=== PATIENT | male | born 1950 ===

== ENCOUNTER 2018-11-29 12:57 | Inpatient (IN) | payer OTHER ==
[~2018-11-29] VITALS: Ht 182.9 cm; Wt 79.0 kg
[~2018-11-29 12:57] MED LIST: Dazidox10 MG PO; LORA1 PO; PANT20 PO; PREG100 PO
[2018-11-29 13:22] LABS: BASOPHILS ABSOLUTE AUTO 0.08 K/mm3 (0.00-0.23); BASOPHILS PERCENT AUTO 1 % (0-2); EOSINOPHILS ABSOLUTE AUTO 0.12 K/mm3 (0.00-0.68); EOSINOPHILS PERCENT AUTO 1 % (0-6); Hematocrit 35.8 % (37.0-53.0); Hemoglobin 11.8 g/dL (13.5-17.5); IMMATURE GRAN ABSOLUTE AUTO 0.03 K/mm3 (0.00-0.10); IMMATURE GRAN PERCENT AUTO 0 % (0-1); LYMPHOCYTES ABSOLUTE AUTO 2.08 K/mm3 (0.84-5.20); LYMPHOCYTES PERCENT AUTO 24 % (21-46); MONOCYTES ABSOLUTE AUTO 0.49 K/mm3 (0.16-1.47); MONOCYTES PERCENT AUTO 6 % (4-13); Mean Corpuscular HGB 30.8 pg (26.0-34.0); Mean Corpuscular Volume 94 fL (80-100); Mean Platelet Volume 10.5 fL (9.1-12.4); NEUTROPHILS ABSOLUTE AUTO 5.74 K/mm3 (1.96-9.15); NEUTROPHILS PERCENT AUTO 67 % (41-73); Platelet Count 234 K/mm3 (150-400); RDW Coefficient Variation 14.7 % (11.7-14.2); RDW Standard Deviation 50.9 fL (35.1-46.3); Red Blood Cell Count 3.83 M/mm3 (4.30-5.90); White Blood Cell Count 8.54 K/mm3 (4.00-11.30)
[2018-11-29 13:42] LABS: Alanine Aminotransfer (ALT/SGP 24 U/L (12-78); Albumin, Blood 3.8 g/dL (3.4-5.0); Albumin/Globulin Ratio 1.1 (0.8-1.8); Alk Phos 98 U/L (50-136); Anion Gap 7 mmol/L (6-16); Aspartate Aminotrans (AST/SGOT 25 U/L (12-37); Bilirubin, Total 0.7 mg/dL (0.1-1.0); Blood Urea Nitrogen 25 mg/dL (8-24); Bun/Creatinine Ratio 25.9 (12.0-20.0); CO2, Blood 27 mmol/L (21-32); Calcium, Blood 9.2 mg/dL (8.5-10.1); Chloride, Blood 105 mmol/L (98-108); Creatinine, Blood 0.97 mg/dL (0.60-1.20); Globulin, Blood 3.6 g/dL (2.2-4.0); Glomerular Filtration Rate >60 (60-); Glucose, Blood 166 mg/dL (70-99); Potassium, Blood 4.1 mmol/L (3.5-5.5); Sodium, Blood 139 mmol/L (136-145); Total Protein, Blood 7.4 g/dL (6.4-8.2)
[2018-11-29 14:49] LABS: International Normalized Ratio 0.98; Prothrombin Time Results 10.4 Sec (9.7-11.5)
[2018-11-29 15:00] LABS: PCO2 Arterial 57.4 mmHg (35-45); PO2 Arterial 42.7 mmHg (80-100); pH Blood Arterial 7.31 (7.35-7.45)
[2018-11-29] MEDS ORDERED: Oxycontin60 MG PO (15:21)
[2018-11-29 18:53] LABS: PCO2 Arterial 46.9 mmHg (35-45); PO2 Arterial 123 mmHg (80-100); pH Blood Arterial 7.38 (7.35-7.45)
--- NOTE | 2018-11-29 20:10 | NUR ---
ADMIT NOTE RECEIVED REPORT FROM JUSTYN FIERRO IN ED. PT TO ROOM VIA GURNEY, TRANSFERED WITH 5 PERSON ASSIST AND SLIDER SHEET AT 1750. PT RESPONDS TO VERBAL STIMULI, PT ANSWERS QUESTIONS, ORIETED TO SELF AND FAMILY, FOLLOWS DIRECTIONS. PER RERPORT FROM ED RN AND SIGNIFICANT OTHER, PT WAS FOUND DOWN AT HOME, BETWEEN COUCH AND WALL, EMS WAS CALLED. PT CRITICAL CARE BIPAP, SETTINGS ON ADMISSION 04/26 AT 30% FIO2, BACK RATE OF 14. PT DENIES PAIN AND NAUSEA; SHAKES HEAD "NO" WHEN ASKED. PRESSURE ULCES TO LEFT GLUTEAL CLEF AND BLISTER NOTED ON LEFT SHIFT, PICTURES TAKEN AND IN CHART. SO STATES PATIENT HAS BEEN PARALYZED FROM THE WAIST DOWN FOR APPROX 4 MONTHS AND USES A WHEELCHAIR AT BASELINE. ELEVATED BP NOTED ON ADMISSION AND PT BECOMING LESS RESPONSE SINCE ADMISSION, AND PT ONLY TRIGGERING SPONTANEOUS RESP 21% OF TIME, NOTIFIED DR OBREGON, NEW ORDERS FOR STAT ABG, STOP FLUIDS AND NARCAN 0.4 MG IV AFTER ABG DRAWN. ABG COMLETED, STANISLAW CRESPO RN CALLED RESULTS INTO DR OBREGON. NARCAN ADMINISTERED WITH POSITIVE RESULTS, PT SPONTASEOUSLY ALERT AND ASKING FOR URINAL. ATTENDS WET AND PT CLEANED AND ATTENDS CHANGED. BP TRENDING DOWN ON REASSESSMENT. OTHER VSS. NO OTHER ACUTE CHANGES NOTED. REPORT GIVEN TO ONCOMING JUSTYN.
--- NOTE | 2018-11-29 22:23 | NUR ---
ASSUMED CARE OF PATIENT AT APPROXIMATELY 1910 FROM SANTOS Mullen RN. PATIENT WAKES TO VERBAL STIMULUS AND THROUGHOUT SHIFT HAS BECOME MORE ALERT; OPENS EYES SPONTANEOUSLY. PATIENT OCCASIONALLY MUMBLES; REPORTS THIS IS NORMAL; PATIENT'S REPORTS THAT PATIENT NORMALLY STATES HE NEEDS TO PEE FIRST THING WHEN HE WAKES UP. PATIENT AND PATIENT'S REPORTS THAT PATIENT HAS N/T FROM WAIST DOWN. PATIENT DENIES PAIN, DIZZINESS AND NAUSEA. NSR W/ 1DEGREE ON TELE; OXYGEN SATURATION ABOVE 90% ON BIPAP RATE 16; 25% FIO2. PATIENT'S HAS BEEN AT BEDSIDE. PATIENT USES URINAL AT TIMES; INCONTINENT OF URINE AND STOOL; ATTENDS IN PLACE; TURNED Q2 HOURS AND ATTENDS CHECKED; PRESSURE ULCER. PIV S/L. PATIENT CURRENTLY RESTING IN BED; CALL LIGHT IN REACH; BED ALARM ON; BED IN LOWEST POSISTION; WILL CONTINUE TO MONITOR AND ASSESS UNTIL END OF SHIFT.
--- NOTE | 2018-11-30 00:34 | NUR ---
BLADDER SCAN OF 570; CALLED DR. HARRY; PATIENT REPORTS NEED TO URINATE; UNABLE TWICE; REPORTS PATIENT HAS BEEN HAVING THIS ISSUE FOR THREE DAYS. ORDERS FOR URINARY CATHETER BUT REMOVE ONCE PATIENT'S RESPIRATORY STATUS IMPROVES. WILL CONTINUE TO MONITOR AND ASSESS. PATIENT MORE ALERT COMPARED TO START OF SHIFT; PULLING BIPAP OFF AND TRYING TO SLIDE LEGS TO SIDE OF BED.
[2018-11-30 00:49] LABS: Source, Urine Catheter
[2018-11-30 00:52] LABS: Bilirubin, Urine Neg (Neg); Blood, Urine 5+ (Neg); Glucose Qualitative, Urine Neg (Neg); Ketones, Urine Neg (Neg); Leukocyte Esterase, Urine 1+ (Neg); Nitrite, Urine Neg (Neg); Protein, Urine 2+ (Neg); Urobilinogen, Urine NORM (Normal)
[2018-11-30 00:57] LABS: Color, Urine Yellow (P-Yellow)
[2018-11-30 00:58] LABS: Appearance, Urine Clear (Clear); Bacteria Rare /hpf; Red Blood Cells, Urine Rare /hpf (0-2); Squamous Epithelial Cells Not Seen /hpf (Few); White Blood Cells, Urine 0-2 /hpf (0-5)
[2018-11-30 00:59] LABS: Amorphous Light (0-Heavy)
[2018-11-30 04:40] LABS: BASOPHILS ABSOLUTE AUTO 0.05 K/mm3 (0.00-0.23); BASOPHILS PERCENT AUTO 1 % (0-2); EOSINOPHILS ABSOLUTE AUTO 0.09 K/mm3 (0.00-0.68); EOSINOPHILS PERCENT AUTO 1 % (0-6); Hematocrit 35.9 % (37.0-53.0); Hemoglobin 11.5 g/dL (13.5-17.5); IMMATURE GRAN ABSOLUTE AUTO 0.02 K/mm3 (0.00-0.10); IMMATURE GRAN PERCENT AUTO 0 % (0-1); LYMPHOCYTES PERCENT AUTO 35 % (21-46); MONOCYTES ABSOLUTE AUTO 0.51 K/mm3 (0.16-1.47); MONOCYTES PERCENT AUTO 6 % (4-13); Mean Corpuscular Volume 94 fL (80-100); Mean Platelet Volume 10.3 fL (9.1-12.4); NEUTROPHILS PERCENT AUTO 57 % (41-73); Platelet Count 225 K/mm3 (150-400); RDW Coefficient Variation 14.7 % (11.7-14.2); RDW Standard Deviation 51.2 fL (35.1-46.3); Red Blood Cell Count 3.83 M/mm3 (4.30-5.90); White Blood Cell Count 8.37 K/mm3 (4.00-11.30)
[2018-11-30 05:10] LABS: Anion Gap 5 mmol/L (6-16); Blood Urea Nitrogen 22 mg/dL (8-24); Bun/Creatinine Ratio 22.1 (12.0-20.0); CO2, Blood 28 mmol/L (21-32); Calcium, Blood 9.4 mg/dL (8.5-10.1); Chloride, Blood 105 mmol/L (98-108); Glomerular Filtration Rate >60 (60-); Glucose, Blood 145 mg/dL (70-99); Potassium, Blood 4.1 mmol/L (3.5-5.5); Sodium, Blood 138 mmol/L (136-145)
--- NOTE | 2018-11-30 08:00 | NUR ---
PT LAYING IN BED AGGITATED, CONFUSED, IN ROOM, HE IS WANTING TO SIT UP, OUT TO DESK A NUMBER OF TIMES, TOLD US HE WANTS TO GO SMOKE BUT SHE CAN'T TAKE HIM, EXPLAINE HE NO ONE CAN TAKE HIM OUT, REQUESTED A NICOTINE PATCH, LUNGS ARE COURSE T/O, DIM IN BASES, RESP EVEN AND UNLABORED, NO COUGH NOTED, HRR, TELE IN PLACE RUNNING SR WITH 1ST DEGREE, TRACE EDEMA NOTED TO B/L LE, PPP+2, CAP REFILL <3SEC, VS STABLE, LOW GRADE TEMP, IV SITE IS CLEAR AND PATENT, BTX4, ABD FLAT SOFT NONTENDER, VOIDS VIA BEVERLY CATH DRAINING CLEAR YELLOW URINE, SKIN HAS A DRESSING TO LEFT BUTTOCKS, MOVES UPPER BODY WELL, BUT CAN'T STAND, HE IS A LIFT TO MOVE TO THE CHAIR, MODESTA, CALL LIGHT IN REACH.
--- NOTE | 2018-11-30 12:08 | NUR ---
pt is very confused, is frustrated with his garcia and is pulling on it. in room is frustrated with him, admission discharge rn spoke with Dr. Espinal, will be moving him to the special care unit if he is doing ok, will be going home to take a break and daughter is here to take care of him . state he is more confused than normal and she is not coping well. does not seem to understand that him being awake is acutally better than needing to be on the bipap and unresponsive. v.s. are stable. call light in reach.
--- NOTE | 2018-11-30 15:10 | NUR ---
Pt in bed children at bedside helping him try to position for comfort. Assited with positioning therputic back rub. pt could only tolerate very light touch. spoke with pt about rest. Stepped out of room with children so he could sleep. Review of care with family . They state he has declined the past few month. 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 The also stated he was exposed to agent orange. Sent for [facility] and advance directive. Recieved notes on his care no AD on file. Review with children plan of care of current treatment. Spoke with them about meeting to plan his care for the future. They state they are taking him out of his home. They state their mother his ex has POA of his health care. She is declining and recently had a CVA so they are careing for both parents. He guido not have a will, power of civil attorney or advance directive. They are not on his banking accounts. They do not know his express wishes for care. They will meet with their siblings. [place]. Gave family our contact information to meet and form a plan of care. Home is he clears and can participate.
--- NOTE | 2018-11-30 18:45 | NUR ---
PT HAS BEEN PRETTY AGITATED THIS MORNING, HE PULLED ON LINES, AND BEVERLY, HE WAS REALLY MESSING WITH THE BEVERLY, AND ATTEMPTING TO REMOVE IT, WAS NOT PRODUCTIVE TO EXPLAIN TO HIM NEED, REMOVED IT FOR HIS SAFETY. HE HAS VOIDED SINCE THAT TIME, INCONT IN BED RESULTING IN A COMPLETE BED CHANGE HE REMOVED HIS ATTENDS. HE IS MORE CALM SINCE REMOVING IT. SAT IN THE RECLINER CHAIR FOR A A FEW HRS, THEN IN BED THE REST OF THE DAY. DAUGHTER IN ROOM THIS EVENING, CALL LIGHT IN REACH.
--- NOTE | 2018-11-30 19:45 | NUR ---
ASSUMED CARE PT SLEEPING IN ROOM APPEARS TO BE COMFORTABLE AT THIS TIME. PER DAY SHIFT PT HAD NO MAJOR CHANGES IN STATUS T/O DAY. PT HAS BEEN TITRATED DOWN TO RA, W/ SATS >92%. PT DOES HAVE SHORT DESATS DURING SLEEP, BUT RECOVERS QUICKLY W/O NEED OF ADDITIONAL 02. PT HAS BEEN CONFUSED T/O DAY AND OCCASIONALLY IRRITABLE W/ STAFF. FAMILY HAS BEEN AT PT BEDSIDE OFF AND ON T/O DAY. NO FAMILY PRESENT AT THIS TIME. PT HAS BEEN TURNED Q2HR FOR PARALYSIS AND DECREASED SENSATION IN BLE. MEPILEX IN OPLACE OVER WOUND ON L GLUTEAL FOLD. PILLOW PLACED BETWEEN KNEES TO PREVENT SKIN BREAKDOWN. PALLIATIVE CARE HAS BEEN CONSULTED, AND BEEN IN TO [facility] PT EARLIER TODAY. PT IS INCONTINENT OF STOOL AND URINE, ATTENDS IN PLACE. DENIES OTHER NEEDS. CALL LIGHT WITHIN REACH OF PT.
--- NOTE | 2018-11-30 22:40 | NUR ---
TRANSFER OF CARE REPORT CALLED TO SAMANTHA ALEJANDRA. PT BELONGINGS GATHERED IN ROOM, AND PLACED ON BED W/ PT FOR TRANSPORT. CHART SENT, NO MEDICATIONS TO SEND. PT IS SALINE LOCKED AT THIS TIME. PT TRANSFERED VIA HOSP BED BY THIS RN AND MANAGER INTERNET.
[2018-12-01 05:37] LABS: BASOPHILS ABSOLUTE AUTO 0.06 K/mm3 (0.00-0.23); BASOPHILS PERCENT AUTO 1 % (0-2); EOSINOPHILS ABSOLUTE AUTO 0.06 K/mm3 (0.00-0.68); EOSINOPHILS PERCENT AUTO 1 % (0-6); Hematocrit 34.7 % (37.0-53.0); Hemoglobin 11.1 g/dL (13.5-17.5); IMMATURE GRAN ABSOLUTE AUTO 0.02 K/mm3 (0.00-0.10); IMMATURE GRAN PERCENT AUTO 0 % (0-1); LYMPHOCYTES ABSOLUTE AUTO 1.78 K/mm3 (0.84-5.20); LYMPHOCYTES PERCENT AUTO 20 % (21-46); MONOCYTES ABSOLUTE AUTO 0.62 K/mm3 (0.16-1.47); MONOCYTES PERCENT AUTO 7 % (4-13); Mean Corpuscular HGB 28.8 pg (26.0-34.0); Mean Platelet Volume 10.6 fL (9.1-12.4); NEUTROPHILS ABSOLUTE AUTO 6.43 K/mm3 (1.96-9.15); NEUTROPHILS PERCENT AUTO 72 % (41-73); Platelet Count 224 K/mm3 (150-400); RDW Coefficient Variation 14.5 % (11.7-14.2); RDW Standard Deviation 47.5 fL (35.1-46.3); Red Blood Cell Count 3.85 M/mm3 (4.30-5.90); White Blood Cell Count 8.97 K/mm3 (4.00-11.30)
[2018-12-01 05:42] LABS: Mean Corpuscular Volume 90 fL (80-100)
[2018-12-01 05:53] LABS: Albumin, Blood 3.7 g/dL (3.4-5.0); Anion Gap 5 mmol/L (6-16); Blood Urea Nitrogen 9 mg/dL (8-24); Bun/Creatinine Ratio 13.2 (12.0-20.0); CO2, Blood 28 mmol/L (21-32); Calcium, Blood 9.3 mg/dL (8.5-10.1); Chloride, Blood 106 mmol/L (98-108); Creatinine, Blood 0.68 mg/dL (0.60-1.20); Glomerular Filtration Rate >60 (60-); Glucose, Blood 184 mg/dL (70-99); Phosphorus, Blood 3.1 mg/dL (2.5-4.9); Potassium, Blood 3.9 mmol/L (3.5-5.5); Sodium, Blood 139 mmol/L (136-145)
--- NOTE | 2018-12-01 06:35 | NUR ---
NOC SHIFT SUMMARY RECEIVED PT PCU TRANSFER THIS NIGHT. HE WAS ADMITTED FOR RESP FAILURE POSSIBLY FROM OPIATE OVERDOSE. HE IS PLEASANT AND COOPERATIVE. HE IS ABLE TO MOVE HIS LEGS AND STATES HE HAS SENSATION IN BLE'S. 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 HE IS INCONTINENT AND HAS TRIED TO GET OUT OF BED AFTER HAVING AN ACCIDENT AND SOAKING THE BED. PT CLEANED UP AND BED CHANGED. BED ALARM SET. PRESENTLY APPEARS IN NO ACUTE DISTRESS. DENIES PAIN. WILL CONTINUE TO MONITOR.
--- NOTE | 2018-12-01 18:01 | NUR ---
PT REPORTS CONTINUED CHRONIC BACK PAIN, SAYS HOSP BED IS MAKING IT WORSE, EGG CRATE PLACED ON BED, PO TRAMADOL GIVEN AT NOON AND IV TORADOL GIVEN THIS AFTERNOON WITH MINIMAL RELIEF. PT EXPRESSES DESIRE TO GO HOME TO HIS OWN BED. HE IS ABLE TO STAND PIVOT TO BSC AND SIT UP ON THE SIDE OF THE BED. WILL CONTINUE TO MONITOR AND REPORT TO SONJA ALEJANDRA
--- NOTE | 2018-12-02 03:33 | NUR ---
SHIFT SUMMARY PATIENT HAD NO ACUTE CHANGES OBSERVED THIS SHIFT. AXO X 3 W/CONFUSION. STAND PIVOT WITH ONE ASSIST TO BSC. VSS/AFEBRILE. BACK PAIN WITH MOVEMENT. DENIES SOB AND N/V. CONTINUOUS PULSE OXIMETRY STATING >90% ON RA. WILL SIT ON SIDE OF BED WHEN SPOUSE IS PRESENT. CALL LIGHT IN REACH. BED ALARM ACTIVATED. WILL CONTINUE TO MONITOR UNTIL DAY SHIFT NURSE ASSUMES CARE.
[2018-12-02] MEDS ORDERED: TAMS.4ER PO (14:17)
[2018-12-02] MEDS ORDERED: TRAM50 PO (14:18)
[2018-12-02] MEDS ORDERED: Norvasc5 MG PO (14:19)
--- NOTE | 2018-12-02 15:07 | NUR ---
DISCHARGE DISCHARGE INSTRUCTIONS, MEDICATION LIST AND FOLLOW UP APPOINTMENTS REVIEWED WITH PT, SON AND DAUGHTER, QUESTIONS/CONCERNS ANSWERED. NEW MEDS FAXED TO [facility] IN [place] PER PT PREFERENCE. HARD SCRIP GIVEN TO FRONT WHEEL WALKER. HOME HEALTH TO CONTACT PT TOMORROW. ESCORTED OUT VIA W/C
== END 2018-12-02 15:00 | disposition home health service (06) | DRG 917 ==
LOC: ER 12:57 → PCU 16:42 → MEDS 11-30 22:34
PROVIDERS: Emergency Medicine; Hospitalist; ADMIT Family Medicine
PROC: 5A09457 Assistance with Respiratory Ventilation, 24-96 Consecutive Hours, Continuous Positive Airway Pressure (ICD-10-PCS; principal; 2018-11-29)
DX: T40.601A Poisoning by unspecified narcotics, accidental (unintentional), initial encounter (principal); L89.323 Pressure ulcer of left buttock, stage 3; J96.02 Acute respiratory failure with hypercapnia; J96.01 Acute respiratory failure with hypoxia; I69.351 Hemiplegia and hemiparesis following cerebral infarction affecting right dominant side; T42.4X1A Poisoning by benzodiazepines, accidental (unintentional), initial encounter; F17.210 Nicotine dependence, cigarettes, uncomplicated; J44.9 Chronic obstructive pulmonary disease, unspecified; F41.9 Anxiety disorder, unspecified; I10 Essential (primary) hypertension; D64.9 Anemia, unspecified; K21.9 Gastro-esophageal reflux disease without esophagitis; Z74.01 Bed confinement status; M48.07 Spinal stenosis, lumbosacral region; G89.29 Other chronic pain; R33.9 Retention of urine, unspecified
CPT/HCPCS: 36415; 36600; 70450; 71045; 80048; 80053; 80069; 81001; 82803; 84484; 85025; 85610; 85730; 87086; 93005; 93010; 94640; 94660; 94762; 96361; 96374; 96376; 97161; 97530; 99285-25; J0696; J1650; J1885; J2310; J7030; J7050

== ENCOUNTER 2018-12-16 01:43 | Emergency (ER) | payer OTHER ==
[~2018-12-16] VITALS: Ht 190.5 cm; Wt 99.8 kg
[~2018-12-16 01:43] MED LIST changes: +Norvasc5 MG PO; +Oxycontin60 MG PO; +TAMS.4ER PO; +TRAM50 PO
[2018-12-16 02:53] LABS: Source, Urine Clean Catch
[2018-12-16 02:57] LABS: BASOPHILS ABSOLUTE AUTO 0.05 K/mm3 (0.00-0.23); BASOPHILS PERCENT AUTO 0 % (0-2); EOSINOPHILS ABSOLUTE AUTO 0.06 K/mm3 (0.00-0.68); EOSINOPHILS PERCENT AUTO 1 % (0-6); Hematocrit 32.9 % (37.0-53.0); Hemoglobin 10.4 g/dL (13.5-17.5); IMMATURE GRAN ABSOLUTE AUTO 0.06 K/mm3 (0.00-0.10); IMMATURE GRAN PERCENT AUTO 1 % (0-1); LYMPHOCYTES PERCENT AUTO 22 % (21-46); MONOCYTES ABSOLUTE AUTO 0.68 K/mm3 (0.16-1.47); MONOCYTES PERCENT AUTO 5 % (4-13); Mean Corpuscular HGB 29.5 pg (26.0-34.0); Mean Corpuscular HGB Conc 31.6 g/dL (31.5-36.5); Mean Corpuscular Volume 94 fL (80-100); Mean Platelet Volume 10.6 fL (9.1-12.4); NEUTROPHILS ABSOLUTE AUTO 9.37 K/mm3 (1.96-9.15); NEUTROPHILS PERCENT AUTO 72 % (41-73); Platelet Count 235 K/mm3 (150-400); RDW Coefficient Variation 14.1 % (11.7-14.2); RDW Standard Deviation 48.6 fL (35.1-46.3); Red Blood Cell Count 3.52 M/mm3 (4.30-5.90); White Blood Cell Count 13.02 K/mm3 (4.00-11.30)
[2018-12-16 02:57] LABS: Appearance, Urine Clear (Clear); Bilirubin, Urine Neg (Neg); Blood, Urine 4+ (Neg); Color, Urine Amber (P-Yellow); Glucose Qualitative, Urine Neg (Neg); Ketones, Urine 1+ (Neg); Leukocyte Esterase, Urine Neg (Neg); Nitrite, Urine Neg (Neg); Protein, Urine 2+ (Neg); Specific Gravity, Urine 1.025 (1.003-1.022); Urobilinogen, Urine NORM (Normal)
[2018-12-16 03:04] LABS: Amorphous Light ({null, 0-Heavy}); Bacteria Mod /hpf; Hyaline Casts 0-2 /lpf (0-2); Mucus Light ({null, 0-Heavy}); Red Blood Cells, Urine 0-2 /hpf (0-2); Squamous Epithelial Cells Not Seen /hpf (Few); White Blood Cells, Urine 0-2 /hpf (0-5)
[2018-12-16 03:16] LABS: Alanine Aminotransfer (ALT/SGP 26 U/L (12-78); Albumin, Blood 3.5 g/dL (3.4-5.0); Albumin/Globulin Ratio 0.9 (0.8-1.8); Alk Phos 97 U/L (50-136); Anion Gap 8 mmol/L (6-16); Aspartate Aminotrans (AST/SGOT 45 U/L (12-37); Bilirubin, Total 0.6 mg/dL (0.1-1.0); Blood Urea Nitrogen 48 mg/dL (8-24); CO2, Blood 25 mmol/L (21-32); Calcium, Blood 9.1 mg/dL (8.5-10.1); Chloride, Blood 105 mmol/L (98-108); Creatinine, Blood 1.17 mg/dL (0.60-1.20); Glomerular Filtration Rate >60 (60-); Glucose, Blood 145 mg/dL (70-99); Potassium, Blood 4.9 mmol/L (3.5-5.5); Sodium, Blood 138 mmol/L (136-145); Total Protein, Blood 7.5 g/dL (6.4-8.2)
[2018-12-16 03:20] LABS: Ethanol (Alcohol), Blood, Med <3 mg/dL
[2018-12-16 03:21] LABS: Troponin I <0.015 ng/mL (0.000-0.040)
== END 2018-12-16 06:49 | disposition home or self-care (01) ==
LOC: ER 01:43
PROVIDERS: Emergency Medicine
DX: R40.4 Transient alteration of awareness (principal); F43.10 Post-traumatic stress disorder, unspecified; F41.9 Anxiety disorder, unspecified; Z86.73 Personal history of transient ischemic attack (TIA), and cerebral infarction without residual deficits; I10 Essential (primary) hypertension; F03.90 Unspecified dementia, unspecified severity, without behavioral disturbance, psychotic disturbance, mood disturbance, and anxiety; Z79.899 Other long term (current) drug therapy; F17.200 Nicotine dependence, unspecified, uncomplicated
CPT/HCPCS: 71046; 80053; 81001; 82947; 83880; 84484; 85025; 87086; 93005; 93010; 99285-25; G0480

== ENCOUNTER 2019-01-16 16:27 | Inpatient (IN) | payer OTHER ==
[~2019-01-16] VITALS: Ht 193 cm; Wt 80.7 kg
[2019-01-16 16:50] LABS: BASOPHILS ABSOLUTE AUTO 0.05 K/mm3 (0.00-0.23); BASOPHILS PERCENT AUTO 0 % (0-2); EOSINOPHILS PERCENT AUTO 1 % (0-6); Hematocrit 31.9 % (37.0-53.0); Hemoglobin 10.3 g/dL (13.5-17.5); IMMATURE GRAN ABSOLUTE AUTO 0.07 K/mm3 (0.00-0.10); IMMATURE GRAN PERCENT AUTO 1 % (0-1); LYMPHOCYTES ABSOLUTE AUTO 2.41 K/mm3 (0.84-5.20); LYMPHOCYTES PERCENT AUTO 16 % (21-46); MONOCYTES PERCENT AUTO 5 % (4-13); Mean Corpuscular HGB 29.6 pg (26.0-34.0); Mean Corpuscular HGB Conc 32.3 g/dL (31.5-36.5); Mean Corpuscular Volume 92 fL (80-100); Mean Platelet Volume 10.7 fL (9.1-12.4); NEUTROPHILS ABSOLUTE AUTO 11.38 K/mm3 (1.96-9.15); NEUTROPHILS PERCENT AUTO 77 % (41-73); Platelet Count 186 K/mm3 (150-400); RDW Coefficient Variation 14.6 % (11.7-14.2); RDW Standard Deviation 49.5 fL (35.1-46.3); Red Blood Cell Count 3.48 M/mm3 (4.30-5.90); White Blood Cell Count 14.71 K/mm3 (4.00-11.30)
[2019-01-16 17:14] LABS: Alanine Aminotransfer (ALT/SGP 60 U/L (12-78); Albumin, Blood 3.3 g/dL (3.4-5.0); Albumin/Globulin Ratio 0.8 (0.8-1.8); Alk Phos 97 U/L (50-136); Anion Gap 5 mmol/L (6-16); Aspartate Aminotrans (AST/SGOT 141 U/L (12-37); Blood Urea Nitrogen 28 mg/dL (8-24); Bun/Creatinine Ratio 30.1 (12.0-20.0); CO2, Blood 28 mmol/L (21-32); Calcium, Blood 9.1 mg/dL (8.5-10.1); Chloride, Blood 102 mmol/L (98-108); Creatinine, Blood 0.93 mg/dL (0.60-1.20); Globulin, Blood 4.4 g/dL (2.2-4.0); Glomerular Filtration Rate >60 (60-); Glucose, Blood 133 mg/dL (70-99); Potassium, Blood 4.2 mmol/L (3.5-5.5); Sodium, Blood 135 mmol/L (136-145); Total Protein, Blood 7.7 g/dL (6.4-8.2)
[2019-01-16 18:02] LABS: Source, Urine Catheter
[2019-01-16 18:08] LABS: Appearance, Urine Clear (Clear); Bilirubin, Urine Neg (Neg); Blood, Urine 3+ (Neg); Color, Urine Yellow (P-Yellow); Glucose Qualitative, Urine Neg (Neg); Ketones, Urine 1+ (Neg); Leukocyte Esterase, Urine Neg (Neg); Nitrite, Urine Neg (Neg); Protein, Urine 2+ (Neg); Urobilinogen, Urine NORM (Normal)
[2019-01-16 18:30] LABS: White Blood Cells, Urine 0-2 /hpf (0-5)
[2019-01-16 18:31] LABS: Bacteria Few /hpf; Granular Casts 0-2 /lpf ({null, 0}); Squamous Epithelial Cells Not Seen /hpf (Few)
[2019-01-16] MEDS ORDERED: METF500 PO (18:42)
[2019-01-16] MEDS ORDERED: PREG150 PO (18:42)
[2019-01-16] MEDS ORDERED: Inderal 20 mg T20 MG PO (18:43)
[2019-01-16] MEDS ORDERED: Aspir 8181 MG PO (18:44)
[2019-01-16] MEDS ORDERED: HYDMOR4 PO (18:44)
[2019-01-16] MEDS ORDERED: CENTRUM SILVER1 EAC2 PO (18:44)
--- NOTE | 2019-01-16 21:55 | NUR ---
2150 PT ADMITTED TO ROOM 344 PER CART FROM ER, ALERT AND ORIENTED X 1.
--- NOTE | 2019-01-17 04:27 | NUR ---
SHIFT SUMMARY: 68 Y/O MALE RESTED COMFORTABLY ALL SHIFT, DENIES PAIN OR NAUSEA, ALERT PERSON ONLY, COOPERATIVE, BEVERLY DRAINING CLEAR YELLOW FLUID, TELEMETRY REFLECTS NSR WITH OCCASIONAL PVC PER GERIATRIC PERSONAL CARE AIDE RENATO, BED ALARM APPLIED, BED LOW POSITION, CALL LIGHT AT SIDE.
[2019-01-17 05:20] LABS: BASOPHILS ABSOLUTE AUTO 0.05 K/mm3 (0.00-0.23); BASOPHILS PERCENT AUTO 1 % (0-2); EOSINOPHILS ABSOLUTE AUTO 0.07 K/mm3 (0.00-0.68); EOSINOPHILS PERCENT AUTO 1 % (0-6); Hematocrit 30.5 % (37.0-53.0); Hemoglobin 9.9 g/dL (13.5-17.5); IMMATURE GRAN ABSOLUTE AUTO 0.07 K/mm3 (0.00-0.10); IMMATURE GRAN PERCENT AUTO 1 % (0-1); LYMPHOCYTES ABSOLUTE AUTO 1.83 K/mm3 (0.84-5.20); LYMPHOCYTES PERCENT AUTO 17 % (21-46); MONOCYTES ABSOLUTE AUTO 0.57 K/mm3 (0.16-1.47); MONOCYTES PERCENT AUTO 5 % (4-13); Mean Corpuscular HGB 29.6 pg (26.0-34.0); Mean Corpuscular HGB Conc 32.5 g/dL (31.5-36.5); Mean Corpuscular Volume 91 fL (80-100); Mean Platelet Volume 10.4 fL (9.1-12.4); NEUTROPHILS ABSOLUTE AUTO 8.32 K/mm3 (1.96-9.15); NEUTROPHILS PERCENT AUTO 76 % (41-73); Platelet Count 172 K/mm3 (150-400); RDW Coefficient Variation 14.4 % (11.7-14.2); RDW Standard Deviation 48.7 fL (35.1-46.3); Red Blood Cell Count 3.35 M/mm3 (4.30-5.90); White Blood Cell Count 10.91 K/mm3 (4.00-11.30)
[2019-01-17 05:22] LABS: U Amphetamine Screen Not Detected; U Barbituate Screen Not Detected; U Benzodiazapine Screen DETECTED; U Buprenorphine Screen Not Detected; U Cannabinoids Screen Not Detected; U Cocaine Screen Not Detected; U Methadone Screen Not Detected; U Methamphetamine Screen Not Detected; U Opiates Screen DETECTED; U Oxycodone Screen Not Detected; U Phencyclidine Screen Not Detected; U Propoxyphene Screen Not Detected
[2019-01-17 05:40] LABS: Anion Gap 6 mmol/L (6-16); Blood Urea Nitrogen 18 mg/dL (8-24); CO2, Blood 29 mmol/L (21-32); Chloride, Blood 104 mmol/L (98-108); Creatinine, Blood 0.72 mg/dL (0.60-1.20); Glomerular Filtration Rate >60 (60-); Glucose, Blood 129 mg/dL (70-99); Potassium, Blood 3.9 mmol/L (3.5-5.5); Sodium, Blood 139 mmol/L (136-145)
--- NOTE | 2019-01-17 07:05 | NUR ---
ASSUMED CARE OF PT- BEDSIDE REPORT COMPLETED WITH NIGHT JUSTYN NEVAREZ. PER REPORT PT REMOVED HIS IV LAST NIGHT, A NEW ONE WAS PLACED AND HIDDEN WITH COBAN. PT HAS A BEVERLY IN PLACE THAT IS PATENT AND DRAINING. PER REPORT PT HAS LOOKED LIKE HE WAS GOING TO PULL ON THE BEVERLY, IT IS OBSCURED FROM HIS SIGHT AT THIS TIME. PT HAS A Hx OF PULLING A BEVERLY WHILE HOSPITALIZED IN THE PAST. PT O2 SATS WERE IN THE 90-92% RANGE ON ROOM AIR, O2 TUBING REMOVED FROM PT REACH, PER REPORT PT CONTINUOUSLY REMOVED IT AND IT WAS A SAFETY CONCERN.
--- NOTE | 2019-01-17 10:49 | NUR ---
Spiritual care visit attempted. Upon receiving an admit. referral, I visited patient who immediately stated that he will not listen to or talk with me and asked that I would leave. I promptly left. I will continue to remain available to patient and family.
--- NOTE | 2019-01-17 16:53 | NUR ---
SHIFT SUMMARY- PT ALERT AND ORIENTED TO SELF, FAMILY AND PEOPLE. PT ASKED THIS MORNING WHAT HOSPITAL HE IS AT. PT LARGEST COMPLAINT T/O THE DAY HAS BEEN THE UNCOMFORTABLE BED. PT STATED HIS BACK WAS PAINFUL ON THIS MATRESS. PT HAS HAD BACK AND NECK SURGERIES AND HAS CHRONIC PAIN MANAGEMENT; SPOKE TO DR SUMMERS ABOUT HOME MEDS. NEW ORDER FOR PAIN MEDICATION RECIEVED AND GIVEN ONCE DURING THE SHIFT. PT SPOUSE CALLED AND STATED SHE AND THEIR THREE DAUGHTERS MANAGE THE PT CARE AT HOME, WHEN HIS CONFUSION INCREASES THEY CAN NOT MANAGE HIS CARE AND HE BECOMES COMBATIVE. PT MAY NEED SOME ASSISTANCE WITH DISCHARGE PLANNING, WILL SPEAK TO THEM TOMORROW REGUARDING THIS. PLACED A PALLIATIVE CARE CONSULT FOR ADVANCED CARE PLANNING AND SYMPTOM MANNAGEMENT. PT SPOUSE STATED SHE HAS BEEN TOLD THE PT HAS DEMENTIA BUT HE HAS NEVER BEEN TREATED FOR IT. SPOKE TO PALLIATIVE CARE THEY KNOW ABOUT THE CONSULT. SPOKE TO DR SUMMERS ABOUT REMOVING THE BEVERLY OR RECIEVING AN ACTIVE ORDER FOR IT. NEW ORDER RECIEVED FOR BEVERLY FOR RETENTION. PT CURRENTLY LAYING IN BED, CALL LIGHT IN REACH, PT STATES PAIN IS MANAGED AT THIS TIME. PT LAST O2 SAT WAS 94% ON ROOM AIR. NC REPLACED THIS AFTERNOON AND PT LEFT IT IN PLACE WITHOUT A PROBLEM. IV IS CURRENTLY RUNNING LR AT 100ML/HR TELE IN PLACE, BEVERLY PATENT AND DRAINING CLEAR YELLOW URINE. PLACED AN EGG CRATE IN THE PT ROOM; WAITING FOR IT TO DECOMPRESS PRIOR TO PLACING ON THE PT BED. PT IS AWARE.
--- NOTE | 2019-01-17 18:59 | NUR ---
pt restless in bed. review of patient needs with nursing. request history and [facility] directive from [facility] will meet with family tomorrow. review medications for comfort
--- NOTE | 2019-01-17 22:19 | NUR ---
2154 PT ATTEMPTED TO STAND AT BED SIDE X 2 ASSIST WITH GAIT BELT AND WALKER, UNABLE BEAR ANY WEIGHT BILATERAL LEGS ARE DECONDITIONED, ASSISTED BACK TO BED FOR USAGE OF BEDPAN WITH LARGE HARD BROWN STOOL VOIDED, ABLE ROLL BACK AND FORTH IN BED FROM SIDE TO SIDE WITHOUT ISSUE. PT VOICED SLIGHT FRUSTRATION WITH NOT BEING ABLE TO STANDUP. PT ALSO NOT TO HAVE TREMORS WHILE HOLDING GLASS OF WATER TO SIP FROM VIA STRAW.
--- NOTE | 2019-01-18 04:01 | NUR ---
SHIFT SUMMARY: 68 Y/O MALE RESTED COMFORTABLY ALL NIGHT, PT OCCASIONALLY STARTS TO CUS AND JUST REQUIRES ASSISTANCE WITH READJUSTING BLANKETS AND SELF IN BED, PT VOICED DISGUIST AND FRUSTRATION WITH CURRENT HOSPITALIZATION HE DOESN'T THINK HE SHOULD BE HERE, THIS NURSE REVIEWED ADMITTING DIAGNOSIS AND FACTORS THAT LED UP TO CURRENT STAY AFTER ADMIT 01/16, PT IS DECONDITIONED AND UNABLE BEAR ANY WEIGHT WHICH WAS NOTED DURING THIS SHIFT WHEN PATIENT DESIRED TO UTILIZE BSC, HOWEVER; HE WAS UNABLE TO BEAR ANY OWN WEIGHT TO STAND, PIVOT OR TRANSFER EVEN WITH 2 STANDBY ASSIST, PT C/O CHRONIC BACK PAIN RATED 6/10 WITH DILAUDID 2MG PO GIVEN WITH RELIEF FELT, TELEMETRY REFLECTS NSR, BED ALARM APPLIED, BED LOW POSITION, CALL LIGHT AT SIDE.
[2019-01-18 05:14] LABS: BASOPHILS ABSOLUTE AUTO 0.04 K/mm3 (0.00-0.23); BASOPHILS PERCENT AUTO 0 % (0-2); EOSINOPHILS ABSOLUTE AUTO 0.14 K/mm3 (0.00-0.68); EOSINOPHILS PERCENT AUTO 2 % (0-6); Hematocrit 28.6 % (37.0-53.0); Hemoglobin 9.2 g/dL (13.5-17.5); IMMATURE GRAN ABSOLUTE AUTO 0.04 K/mm3 (0.00-0.10); IMMATURE GRAN PERCENT AUTO 0 % (0-1); LYMPHOCYTES ABSOLUTE AUTO 1.91 K/mm3 (0.84-5.20); LYMPHOCYTES PERCENT AUTO 21 % (21-46); MONOCYTES PERCENT AUTO 6 % (4-13); Mean Corpuscular HGB 29.2 pg (26.0-34.0); Mean Corpuscular HGB Conc 32.2 g/dL (31.5-36.5); Mean Corpuscular Volume 91 fL (80-100); Mean Platelet Volume 10.6 fL (9.1-12.4); NEUTROPHILS ABSOLUTE AUTO 6.59 K/mm3 (1.96-9.15); NEUTROPHILS PERCENT AUTO 71 % (41-73); Platelet Count 182 K/mm3 (150-400); RDW Standard Deviation 46.4 fL (35.1-46.3); Red Blood Cell Count 3.15 M/mm3 (4.30-5.90); White Blood Cell Count 9.32 K/mm3 (4.00-11.30)
[2019-01-18 05:39] LABS: Anion Gap 8 mmol/L (6-16); Blood Urea Nitrogen 7 mg/dL (8-24); Bun/Creatinine Ratio 11.2 (12.0-20.0); CO2, Blood 28 mmol/L (21-32); Calcium, Blood 8.9 mg/dL (8.5-10.1); Chloride, Blood 104 mmol/L (98-108); Creatinine, Blood 0.63 mg/dL (0.60-1.20); Glomerular Filtration Rate >60 (60-); Glucose, Blood 113 mg/dL (70-99); Phosphorus, Blood 3.2 mg/dL (2.5-4.9); Potassium, Blood 3.5 mmol/L (3.5-5.5); Sodium, Blood 140 mmol/L (136-145)
--- NOTE | 2019-01-18 07:35 | NUR ---
ASSUMED CARE OF PT- PT ALERT AND ORIENTED, W/C BOUND AT BASELINE. PT STATED HIS SPINE HURTS THIS MORNING, MEDICATED BY NIGHT RN AT 0520 PT AWARE NO ADDITIONAL MEDS DUE UNTIL 0930. PT HAD A LARGE HARD STOOL IN THE BEDPAN LAST NIGHT. SPOKE TO HIM ABOUT TAKING THE MIRALAX THIS MORNING AND HE STATED HE WILL THINK ABOUT IT. PT SEEMS TO BE IN GOOD SPIRITS DESPITE THE PAIN, AND HE SEEMS TO HAVE A BIT MORE ENERGY WHEN COMPARED TO YESTERDAY. PT IS ALSO ABLE TO TAKE INSTRUCTIONS THIS MORNING, EXPLAINED THE USE OF THE TV REMOTE TO HIM AND HE IS CURRENTLY CHANNEL SURFING. PT HAS A BEVERLY IN PLACE THAT IS PATENT AND DRAINING CLEAR YELLOW URINE.
--- NOTE | 2019-01-18 15:30 | NUR ---
ORDER RECIEVED TO DC BEVERLY- CLAMPED BEVERLY AT THIS TIME WILL RELAESE IN 2 HOURS AND RECLAMP. FOR PURPOUSES OF BLADDER TRAINING.
--- NOTE | 2019-01-18 16:26 | NUR ---
[facility] notes to pt chart. review of plan of care.
--- NOTE | 2019-01-18 18:23 | NUR ---
SHIFT SUMMARY- PT SIRIA KURTZ TODAY. UNABLE TO REMAIN CLAMPED FOR LONG ENOUGH TO DO BLADDER TRAINING D/T EVALS AND PT CONSTANT REPOSITIONING HIMSELF. PT ALERT AND ORIENTED, STATED HE REALY WANTS TO GO HOME NOW. SPOUSE CALLED TO CHECK ON HIM AND WAS GIVEN AN UPDATE. PT IS AWARE SHE IS CHECKING IN. PT IV IS PATENT AND CURRENTLY INFUSING IV ABX BUT WILL BE SL AFTER THAT. PT STATED HE CAN NOT USE THE BED NOLAND YET "BUT IT'S COMING." PT HAS NOT VOIDED IN THE 2 HOURS SINCE SIRIA WAS DC'D. WILL PASS ON TO NIGHT RN.
--- NOTE | 2019-01-18 23:33 | NUR ---
0508 PT REMOVED PARAFFINER X 4 AND REFUSED ALLOW NURSING STAFF TO REPLACE BACK ON, STATED, "I DON'T WANT THAT THING ON ME ANYMORE"!. THIS NURSE NOTIFIED Sajan SUAREZ REACTOR KETTLE OPERATOR OF THE ABOVE WITH NO ORDER RECEIVED TO DISCONTINUE, WILL CONTINUE TRYING TO REAPPLY DEVICE THIS SHIFT, PARAFFINER TECH ADVISED OF ABOVE, ALERT AND ORIENTED X 1 TO SELF.
--- NOTE | 2019-01-19 05:10 | NUR ---
SHIFT SUMMARY: 68 Y/O MALE HAD RESTLESS NIGHT AT BEGINNING OF SHIFT WITH PATIENT REMOVING TELEMETRY (MD AWARE) AND PULLING OUT IV FROM RFA WITH REFUSAL TO LET IV BE RESTARTED AT THIS TIME. THIS NURSE TALKED WITH PATIENT THIS AM ABOUT CURRENT HOSPITALIZATION AND NEED TO RECEIVE ANTIBIOTICS AND TO GET LABS DONE THIS AM TO ALLOW MD TO ANALYZE CURRENT HEALTH SITUATION WITH PATIENT VERY RELUCTANT, HOWEVER; HE WAS IN AGREEMENT TO ALLOW NURSING STAFF TO START NEW IV (STARTED BY FRANCIS VITAL RN X 2 ATTEMPT) WITH LABS X 1 TUBE DRAWN FROM IV. PT VOIDED MULTIPLE TIMES (INCONTINENT URINE) AND HAD TWO LARGE BROWN BOWEL MOVEMENTS THIS SHIFT. PT ALERT AND ORIENTED X 2 AND REQUIRES FREQUENT REDIRECTION AND REORIENTATION. PT DID UTILIZE BSC X 2 THIS SHIFT AND REQUIRED 2 ASSIST VIA GAIT BELT TO PIVOT AND TRANSFER TO BSC (BEARED WEIGHT POORLY), DENIES NAUSEA AND MINIMAL BACK PAIN THIS SHIFT (RATED PAIN 6/10 WITH DILAUDID 2MG PO GIVEN X1 WITH RELIEF FELT), BED ALARM APPLIED, BED LOW POSITION, CALL LIGHT AT SIDE.
[2019-01-19 06:03] LABS: Percent Saturation 29.5 % (20.0-50.0)
--- NOTE | 2019-01-19 18:09 | NUR ---
PATIENT MORE ORIENTED THROUGHOUT THE DAY. DILAUDID CHANGED TO 4MG SCHEDULED TODAY. PATIENT REPORTS PAIN WELL CONTROLLED. VSS THIS SHIFT, ON RA. 22G IV TO R FA WNL AND SL. VERY POOR APPETITE TODAY, JUST TOOK BITES OF MEALS. WORKED WITH EJ, UP WITH 1 ASSIST TO CHAIR/BSC. INCONTIENT OF URINE, WEARING ATTENDS. PATIENT VERY UPSET AND DEPRESSED ABOUT CURRENT SITUATION WITH HIS . I SPOKE WITH HIS BRIDGETTE WHO TOLD ME AND THE PATIENT THAT SHE FEELS IT IS BEST FOR HIM TO GO TO A SNF UNTIL HE IS STRONGER DUE TO THE FACT THAT SHE HAD A RECENT STROKE AND DOESN;T FEEL SHE CAN CARE FOR HIM AT HOME. CONTINUES WITH IV AZITHROMYCIN AND ROCEPHIN. PATIENT CALM AND COOPERATIVE WITH CARE. FALL PRECAUTIONS IN PLACE PER UNIT PROTOCOL.
--- NOTE | 2019-01-20 04:23 | NUR ---
SHIFT SUMMARY: NO ACUTE CHANGES OVERNIGHT. PT A&O X4 THROUGHOUT SHIFT. VS WNL. INCONTINENT OF URINE. VOIDING WELL. PT OUT OF BED TO BSC WITH 1 ASSIST USING STAND/PIVOT. BLOOD GLUCOSE WNL; NOT COVERED PER ORDERS. SALINE LOCKED EXCEPT WITH SCHED IV ABX PER EMAR. BED ALARM ON FOR SAFETY.
[2019-01-20] MEDS ORDERED: DOCU100 PO (14:01)
[2019-01-20] MEDS ORDERED: MIRALAX17 GM PO (14:02)
[2019-01-20] MEDS ORDERED: Vsl#3 Capsule1 EACH PO (14:02)
[2019-01-20] MEDS ORDERED: AZIT500 PO (14:03)
[2019-01-20] MEDS ORDERED: CEFU500T30 PO (14:03)
--- NOTE | 2019-01-20 14:17 | NUR ---
PATIENT D/C'D TO HOME WITH DAUGHTER. RX MEDICATIONS FAXED TO [facility]. D/C INSTRUCTIONS AND EDUCATIONS DISCUSSED WITH PATIENT AND COPY PROVIDED. PATIENT DENIES ANY FURTHER QUESTIONS OR CONCERNS.
== END 2019-01-20 14:18 | disposition home or self-care (01) | DRG 871 ==
LOC: ER 16:27 → MEDS 20:16
PROVIDERS: Internal Medicine; Physician Assistant; ADMIT Family Medicine
DX: A41.9 Sepsis, unspecified organism (principal); J18.1 Lobar pneumonia, unspecified organism; J96.01 Acute respiratory failure with hypoxia; G92 Toxic encephalopathy; E87.1 Hypo-osmolality and hyponatremia; R33.9 Retention of urine, unspecified; R65.20 Severe sepsis without septic shock; F03.90 Unspecified dementia, unspecified severity, without behavioral disturbance, psychotic disturbance, mood disturbance, and anxiety; Z86.73 Personal history of transient ischemic attack (TIA), and cerebral infarction without residual deficits; F43.10 Post-traumatic stress disorder, unspecified; F41.8 Other specified anxiety disorders; Z79.82 Long term (current) use of aspirin; F17.210 Nicotine dependence, cigarettes, uncomplicated; E74.39 Other disorders of intestinal carbohydrate absorption; I95.9 Hypotension, unspecified; G89.29 Other chronic pain; M54.9 Dorsalgia, unspecified; D63.8 Anemia in other chronic diseases classified elsewhere; N40.1 Benign prostatic hyperplasia with lower urinary tract symptoms; Z99.3 Dependence on wheelchair; T40.605A Adverse effect of unspecified narcotics, initial encounter; T42.6X5A Adverse effect of other antiepileptic and sedative-hypnotic drugs, initial encounter; Y92.9 Unspecified place or not applicable
CPT/HCPCS: 36415; 51701; 51702; 70450; 71045; 74177; 80048; 80053; 80069; 81001; 82272; 82607; 82728; 82746; 82947; 83036; 83540; 83550; 83605; 84145; 85025; 87040; 93005; 93010; 94640; 94760; 96361-59; 96365-59; 96375-59; 97161; 97166; 97530; 99285-25; C9113; J0456; J0696; J2060; J7050; J7120; Q9967

== ENCOUNTER 2019-04-16 21:01 | Inpatient (IN) | payer OTHER ==
[~2019-04-16] VITALS: Ht 188 cm; Wt 95.2 kg
[~2019-04-16 21:01] MED LIST changes: +AZIT500 PO; +Amlodipine Bes2.5 MG PO; +Aspir 8181 MG PO; +CEFU500T30 PO; +CENTRUM SILVER1 EAC2 PO; +DOCU100 PO; +HYDMOR4 PO; +METF500 PO; +MIRALAX17 GM PO; -Norvasc5 MG PO; +PREG150 PO; +PROP10 PO; +Vsl#3 Capsule1 EACH PO
[2019-04-16 21:39] LABS: BASOPHILS ABSOLUTE AUTO 0.06 K/mm3 (0.00-0.23); BASOPHILS PERCENT AUTO 0 % (0-2); Hematocrit 36.4 % (37.0-53.0); Hemoglobin 11.3 g/dL (13.5-17.5); LYMPHOCYTES ABSOLUTE AUTO 1.63 K/mm3 (0.84-5.20); LYMPHOCYTES PERCENT AUTO 7 % (21-46); MONOCYTES ABSOLUTE AUTO 0.64 K/mm3 (0.16-1.47); MONOCYTES PERCENT AUTO 3 % (4-13); Mean Corpuscular HGB 29.7 pg (26.0-34.0); Mean Corpuscular Volume 96 fL (80-100); Mean Platelet Volume 9.7 fL (9.1-12.4); Platelet Count 316 K/mm3 (150-400); RDW Coefficient Variation 14.7 % (11.7-14.2); RDW Standard Deviation 51.2 fL (35.1-46.3); White Blood Cell Count 24.47 K/mm3 (4.00-11.30)
[2019-04-16 21:40] LABS: EOSINOPHILS PERCENT AUTO 0 % (0-6); IMMATURE GRAN PERCENT AUTO 0 % (0-1); NEUTROPHILS ABSOLUTE AUTO 22.04 K/mm3 (1.96-9.15); NEUTROPHILS PERCENT AUTO 90 % (41-73)
[2019-04-16 21:56] LABS: Alanine Aminotransfer (ALT/SGP 26 U/L (12-78); Albumin, Blood 3.7 g/dL (3.4-5.0); Albumin/Globulin Ratio 0.9 (0.8-1.8); Alk Phos 95 U/L (50-136); Anion Gap 11 mmol/L (6-16); Aspartate Aminotrans (AST/SGOT 34 U/L (12-37); Bilirubin, Total 0.8 mg/dL (0.1-1.0); Blood Urea Nitrogen 33 mg/dL (8-24); Bun/Creatinine Ratio 15.6 (12.0-20.0); CO2, Blood 24 mmol/L (21-32); Calcium, Blood 9.2 mg/dL (8.5-10.1); Chloride, Blood 106 mmol/L (98-108); Creatinine, Blood 2.12 mg/dL (0.60-1.20); Globulin, Blood 4.3 g/dL (2.2-4.0); Glomerular Filtration Rate 33 (60-); Glucose, Blood 187 mg/dL (70-99); Potassium, Blood 4.6 mmol/L (3.5-5.5); Sodium, Blood 141 mmol/L (136-145); Troponin I <0.015 ng/mL (0.000-0.040)
[2019-04-16 22:33] LABS: Influenza A Negative (NEGATIVE); Influenza B Negative (NEGATIVE)
[2019-04-16 22:57] LABS: Base Excess Venous -3.2 mmol/L; Bicarbonate Venous 21.1 mmol/L (24.0-30.0); PCO2 Venous 49.7 mmHg (38-42); PO2 Venous 40.6 mmHg (38-42); pH Blood Venous 7.28 (7.34-7.37)
[2019-04-16 23:29] LABS: Base Excess Venous -5.9 mmol/L; Bicarbonate Venous 19.1 mmol/L (24.0-30.0); PO2 Venous 44.3 mmHg (38-42)
[2019-04-16 23:30] LABS: pH Blood Venous 7.24 (7.34-7.37)
[2019-04-17 00:46] LABS: Source, Urine Clean Catch
[2019-04-17 00:49] LABS: Appearance, Urine Clear (Clear); Blood, Urine 3+ (Neg); Color, Urine Amber (P-Yellow); Glucose Qualitative, Urine Neg (Neg); Ketones, Urine 1+ (Neg); Leukocyte Esterase, Urine 1+ (Neg); Nitrite, Urine Neg (Neg); Protein, Urine 2+ (Neg); Specific Gravity, Urine 1.025 (1.003-1.022); Urobilinogen, Urine 1+ (Normal)
[2019-04-17 00:55] LABS: Bilirubin, Urine 1+ (Neg)
[2019-04-17 00:59] LABS: Amorphous Light (0-Heavy); Bacteria Mod /hpf; Granular Casts 0-2 /lpf (0); Hyaline Casts 50-100 /lpf (0-2); Red Blood Cells, Urine 0-2 /hpf (0-2); Squamous Epithelial Cells Not Seen /hpf (Few); White Blood Cells, Urine 0-2 /hpf (0-5)
--- NOTE | 2019-04-17 01:04 | NUR ---
transfer report from [facility] RN in ER on PT being admitted with Sepsis and rt sided pneumonia, UTI. Await admission
[2019-04-17 02:43] LABS: Hematocrit 30.3 % (37.0-53.0); Hemoglobin 9.3 g/dL (13.5-17.5); Mean Corpuscular HGB 29.8 pg (26.0-34.0); Mean Corpuscular HGB Conc 30.7 g/dL (31.5-36.5); Mean Corpuscular Volume 97 fL (80-100); Mean Platelet Volume 9.8 fL (9.1-12.4); Platelet Count 240 K/mm3 (150-400); RDW Coefficient Variation 14.9 % (11.7-14.2); RDW Standard Deviation 53.2 fL (35.1-46.3); Red Blood Cell Count 3.12 M/mm3 (4.30-5.90); White Blood Cell Count 20.26 K/mm3 (4.00-11.30)
[2019-04-17 03:02] LABS: Albumin/Globulin Ratio 0.8 (0.8-1.8); Bilirubin, Total 0.5 mg/dL (0.1-1.0); Bun/Creatinine Ratio 18.6 (12.0-20.0); Calcium, Blood 8.6 mg/dL (8.5-10.1); Creatinine, Blood 1.72 mg/dL (0.60-1.20); Globulin, Blood 3.6 g/dL (2.2-4.0); Potassium, Blood 4.1 mmol/L (3.5-5.5); Total Protein, Blood 6.6 g/dL (6.4-8.2)
--- NOTE | 2019-04-17 03:43 | NUR ---
PT admitted with sepsis dx alert foergetful high fall risk. DR Barber saw PT and OKS oral intake. PT given ensure and pudding fed self pudding attempting to drink ensure PT spilled all over bed. PT pulled rt forearm IV and pulled off tele monitor. Refused lovenox and flu vaccine. PT did set off bed alarm attempting to get out of bed unassisted within 5 minutes of staff being in room. Removes oxygen intermittantly room air sat 88 to 89%. Arrived to PCU alone. Per report PT has adult Children and or exwife. [facility] PT PT reported 50 plus years of smoking continues to smoke. DNR band applied per MD order. PT has DX PTSD and startles easily. Does not redirect well. Reapplied tele monitor and used LT forearm saline lock. Oxygen reapplied. PT has order for GI and resp panel sputum cultue. No samples obtained yet. PT refusing resisting unsure if PT has had flu vaccine. Currently resting will reapproach.
--- NOTE | 2019-04-17 03:55 | NUR ---
lt forearm IV placed in ER and present on admission to PCU not documented. PT pulled out his rt forearm IV. LT ra IV secured and infusing antibiotics per MD order.
[2019-04-17 05:24] LABS: PO2 Arterial 68.4 mmHg (80-100)
[2019-04-17 10:38] LABS: Adenovirus Not Detected (NOT DETECT); Bordetella pertussis Not Detected (NOT DETECT); Chlamydophila pneumoniae Not Detected (NOT DETECT); Coronavirus 229E Not Detected (NOT DETECT); Coronavirus HKU1 Not Detected (NOT DETECT); Coronavirus NL63 Not Detected (NOT DETECT); Coronavirus OC43 Not Detected (NOT DETECT); Human Metapneumovirus Not Detected (NOT DETECT); Human Rhinovirus/Enterovirus Not Detected (NOT DETECT); Influenza A Not Detected (NOT DETECT); Influenza A/2009-H1 Not Detected (NOT DETECT); Influenza A/H1 Not Detected (NOT DETECT); Influenza A/H3 Not Detected (NOT DETECT); Influenza B Not Detected (NOT DETECT); Mycoplasma pneumoniae Not Detected (NOT DETECT); Parainfluenza Virus 1 Not Detected (NOT DETECT); Parainfluenza Virus 2 Not Detected (NOT DETECT); Parainfluenza Virus 3 Not Detected (NOT DETECT); Parainfluenza Virus 4 Not Detected (NOT DETECT); Respiratory Syncytial Virus Not Detected (NOT DETECT)
--- NOTE | 2019-04-17 13:24 | NUR ---
PCU TRANSFER SUMMARY PATIENT ALERT AND ORIENTED TO SELF AND LOCATION. PATIENT CONFUSED TO SITUATION AND DATE BUT REORIENTS EASILY. PATIENT LIVES AT HOME WITH AND CHILDREN. PATIENT IS CHAIR BOUND AT BASELINE DUE TO CHRONIC BLE WEAKNESS AND SPINAL CORD INJURY FROM WHEN HE WAS IN THE . PATIENT HAS HAD FLUIDS RUN AT 100 ML/HR DURING CARE THIS RN'S SHIFT - TO BE SALINE LOCKED AFTER 1.5 LITERS - REPORTED TO CHRISTIE ON MEDICAL FLOOR. PATIENT TRANSFERS WITH PIVOT TRANSFER AND 1-2 ASSIST. PATIENT HAS CHRONIC BACK PAIN AND CHRONIC BLE NEUROPATHY AT BASELINE. IV IN LEFT FOREARM PATENT. PATIENT IN SINUS RHYTHM WITH PVC'S NOTED IN THE 90'S - NO CARDIAC EVENTS. PATIENTS HAD TELE D/C'D AND TRANSFERED TO MEDICAL FLOOR ROOM 344.
[2019-04-17 13:54] LABS: Adenovirus F 40/41 Not Detected (NOT DETECT); Astrovirus Not Detected (NOT DETECT); Campylobacter Sp Not Detected (NOT DETECT); Cryptosporidium Not Detected (NOT DETECT); Cyclospora Cayetanensis Not Detected (NOT DETECT); E. Coli O157 Not Detected (NOT DETECT); Entamoeba Histolytica Not Detected (NOT DETECT); Enteroaggregative E. coli-EAEC Not Detected (NOT DETECT); Enteropathogenic E. coli-EPEC Not Detected (NOT DETECT); Enterotoxigenic E. coli-ETEC Not Detected (NOT DETECT); Giardia Lamblia Not Detected (NOT DETECT); Norovirus GI/GII Not Detected (NOT DETECT); Plesiomonas Shigelloides Not Detected (NOT DETECT); Rotavirus A Not Detected (NOT DETECT); Salmonella Sp Not Detected (NOT DETECT); Sapovirus Not Detected (NOT DETECT); Shiga Toxin-prod E. coli-STEC Not Detected (NOT DETECT); Shigella/Enteroin E. coli-EIEC Not Detected (NOT DETECT); Vibrio Cholerae Not Detected (NOT DETECT); Vibrio Sp Not Detected (NOT DETECT); Yersinia Enterocolitica Not Detected (NOT DETECT)
--- NOTE | 2019-04-17 17:43 | NUR ---
PT. SITTING IN BED EATING DINNER. PT. CAME TO FLOOR AT 1300 TODAY FROM [facility]. PT. HAS A HISTORY OF PTSD. 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 A&O BUT CONFUSED AT TIME. APPEARS WITHDRAWN. NO NOTEABLE CHANGES SINCE COMING TO FLOOR.
--- NOTE | 2019-04-18 04:49 | NUR ---
SHIFT SUMMARY PT HAS BEEN RESTLESS, ANXIOUS AND AGITATED MOST OF THE NIGHT. PT FORGETS WHERE HE IS AND CONTINUALLY TRIES TO CLIMB OUT OF BED DESPITE BEING REDIRECTED. PT IS PARAPLEGIC, AND IS AT HIGH RISK FOR FALLS. PT AT ONE POINT THOUGHT HE WAS IN HALFWAY, AND ANOTHER TIME HE ATTEMPTED TO GET OOB TO GO TO THE STORE. DAUGHTER CALLED AT ONE POINT EARLIER IN THE SHIFT TO SEE IF SHE COULD COMFORT PT AND OFFER HIM SOME REASSURANCE. PT DAUGHTER DID NOT ANSWER THE PHONE OR CALL BACK. GIFTS OFFICER ALSO REPORTS THAT PT WAS HAVING HALLUCINATIONS. CALLED AND NOTIFIED OF PT AGIATION. I RECEIVED AN ORDER FOR A KEVIN, AND IV HALDOL. I DID NOT GIVE HALDOL, BUT IT IS AVALIBLE PRN. PT IS TOLERATING RESTRAINTS, BUT HAS STILL NOT RESTED THIS SHIFT. VITALS ARE STABLE. MEDICATED X1 FOR PAIN AND FEVER WITH TYLENOL, AND X1 WITH FENTANYL FOR PAIN. PT COMPLAINS OF CHRONIC BACK PAIN. PT HAS VOIDED SEVERAL TIMES THIS SHIFT, PT IS INCONTINENT AND HAS LARGE VOIDS EACH TIME HE GOES REQUIRING LINEN CHANGES. THERE HAVE BEEN NO OTHER CHANGES. BED IN LOWEST POSITION, CALL LIGHT WITHIN REACH. WILL CONTINUE TO MONITOR AND REPORT TO ONCOMING RN.
[2019-04-18 05:14] LABS: BASOPHILS ABSOLUTE AUTO 0.03 K/mm3 (0.00-0.23); BASOPHILS PERCENT AUTO 0 % (0-2); EOSINOPHILS ABSOLUTE AUTO 0.02 K/mm3 (0.00-0.68); EOSINOPHILS PERCENT AUTO 0 % (0-6); Hemoglobin 9.3 g/dL (13.5-17.5); IMMATURE GRAN ABSOLUTE AUTO 0.12 K/mm3 (0.00-0.10); IMMATURE GRAN PERCENT AUTO 1 % (0-1); LYMPHOCYTES ABSOLUTE AUTO 1.22 K/mm3 (0.84-5.20); LYMPHOCYTES PERCENT AUTO 7 % (21-46); MONOCYTES ABSOLUTE AUTO 0.55 K/mm3 (0.16-1.47); MONOCYTES PERCENT AUTO 3 % (4-13); Mean Corpuscular HGB 29.2 pg (26.0-34.0); Mean Corpuscular HGB Conc 32.1 g/dL (31.5-36.5); Mean Platelet Volume 10.2 fL (9.1-12.4); NEUTROPHILS ABSOLUTE AUTO 16.88 K/mm3 (1.96-9.15); NEUTROPHILS PERCENT AUTO 90 % (41-73); Platelet Count 226 K/mm3 (150-400); RDW Coefficient Variation 14.4 % (11.7-14.2); RDW Standard Deviation 48.2 fL (35.1-46.3); Red Blood Cell Count 3.19 M/mm3 (4.30-5.90); White Blood Cell Count 18.82 K/mm3 (4.00-11.30)
[2019-04-18 05:21] LABS: Mean Corpuscular Volume 91 fL (80-100)
[2019-04-18 05:41] LABS: Anion Gap 7 mmol/L (6-16); Blood Urea Nitrogen 15 mg/dL (8-24); Bun/Creatinine Ratio 17.3 (12.0-20.0); CO2, Blood 27 mmol/L (21-32); Calcium, Blood 9.7 mg/dL (8.5-10.1); Chloride, Blood 103 mmol/L (98-108); Creatinine, Blood 0.87 mg/dL (0.60-1.20); Glomerular Filtration Rate >60 (60-); Glucose, Blood 148 mg/dL (70-99); Potassium, Blood 3.8 mmol/L (3.5-5.5); Sodium, Blood 137 mmol/L (136-145)
--- NOTE | 2019-04-18 06:27 | NUR ---
RESTRAINT REMOVAL PT BECAME MUCH MORE AGIATED WITH HIS RESTRAINTS, HE WAS TUGGING ON RESTRAINTS AND THREATNING STAFF. PT WOULD NOT ALLOW US TO TURN AND CHANGE HIM AND REFUSED, PO NUTRITION. PT BECAME AGIAITED TO THE POINT THAT HE REQUIRED IV HALDOL. MEDICATED WITH IV HALDOL AT 0543. PT SINCE THAT TIME HAS BEEN RESTING IN BED, AND HAS BECOME MUCH MORE ALERT AND ORIENTED THE MORNING HAS PROGRESSED. HE IS NO LONGER ATTEMPTING TO CLIMB OUT OF BED, HE IS RESTING IN BED COMFORTABLY AND WATCHING TV. HE AGREES THAT HE WILL NOT CLIMB OUT OF BED, AND DENIES ANY OTHER NEEDS AT THIS TIME. RESTRAINTS REMOVED AT 0623, SKIN CONDITION, AND CIRCULATION CHECKED. PO NUTRITION OFFERED.
--- NOTE | 2019-04-18 06:48 | NUR ---
ZOFRAN IV HALDOL WAS FLAGGED TO HAVE AN INTERACTION WITH IV ZOFRAN WHEN THE ORDER WAS PLACED IN THE COMPUTER. IV HALDOL AND ZOFRAN TOGETHER IS A QT PROLONGING AGENT. CALLED PHARMACY TO VERIFY THAT IT WAS OK TO CONTINUE WITH THE ORDER. THEY STATE THAT IS OK BUT TO GET ZOFRAN DC'D. PT HAS NOT NEEDED ZOFRAN SINCE HIS ADMISSION AND HAS NOT RECEIVED ANY. DR. LEMOS CALL THIS AM TO GET ZOFRAN DC'D AND HE WAS NOTIFIED OF THE REASONS WHY. HE STATES ITS OK TO KEEP ZOFRAN ON THE EMAR AND THAT PT CAN RECEIVE BOTH. AZYHROMYACIN OK WITH IV HALDOL WELL PER PHARMACIST YUDITH MONTESINOS.
--- NOTE | 2019-04-18 16:16 | NUR ---
PT IS A/OX2, PLEASANT AND COOPERATIVE SO FAR TODAY, PT IS UNRESTRAINED, THE PT GETS UP TO THE SIDE OF THE BED FREQUANTLY T/O THE DAY FOR COMFORT, THE PT STATES THAT HE KNOWS HIS LIMITATIONS AND DOES NOT STAND WITHOUT ASSISTANCE, THE PT WAS MEDICATED FOR PAIN X1 AND NAUSEA X1 SO FAR TODAY, THE PT DENIED SOB, THE PT APPEARS TO BE BREATHING EASILY ON RA AT THIS TIME. PT HAS OCCASIONAL NON PRODUCTIVE COUGH, PTS APPETTITE IS POOR, CALL LIGHT IN REACH, WILL CONTINUE TO MONITOR AND ASSESS FOR CHANGES
--- NOTE | 2019-04-19 04:02 | NUR ---
Shift Summary Patient slept intermittently through the night. He complained of some pain to his back, which is chronic, and accepted Tylenol (see emar). Tylenol has been effective for pain, and he declines IV fentanyl. PO intake has been poor. encouraged fluids. He is remains somewhat disoriented, though easily redirectable.
--- NOTE | 2019-04-19 17:16 | NUR ---
PT IS A/OX3, PLEASANT AND COOPERATIVE, THE PT IS UP TO THE BSC WITH ASSIST. THE PT IS PARAPLEGIC, HOWEVR, HE IS ABLE TO SWING HIS LEGS OVER TO THE SIDE OF THE BED AND SIT UP WITHOUT ASSISTANCE FOR MEALS AND MEDICATIONS, THE PT APPEARS TO BE BREATHING EASILY ON RA AT THIS TIME, THE PT HAS PAIN IN HIS LEFT HIP , HOWEVER DECLINES PAIN MEDICATION , CALL LIGHT IN REACH WILL CONTINUE TO MONITOR AND ASSESS FOR CHANGES
--- NOTE | 2019-04-20 04:35 | NUR ---
Shift Summary Patient slept intermittently overnight, preferring the light on in his room. Encouraging fluids, as patient has not voided since day shift.
[2019-04-20 05:17] LABS: BASOPHILS ABSOLUTE AUTO 0.05 K/mm3 (0.00-0.23); BASOPHILS PERCENT AUTO 1 % (0-2); EOSINOPHILS ABSOLUTE AUTO 0.04 K/mm3 (0.00-0.68); EOSINOPHILS PERCENT AUTO 0 % (0-6); Hematocrit 30.6 % (37.0-53.0); Hemoglobin 9.8 g/dL (13.5-17.5); IMMATURE GRAN ABSOLUTE AUTO 0.04 K/mm3 (0.00-0.10); IMMATURE GRAN PERCENT AUTO 0 % (0-1); LYMPHOCYTES PERCENT AUTO 25 % (21-46); MONOCYTES PERCENT AUTO 7 % (4-13); Mean Corpuscular HGB 28.9 pg (26.0-34.0); Mean Corpuscular Volume 90 fL (80-100); Mean Platelet Volume 9.7 fL (9.1-12.4); NEUTROPHILS ABSOLUTE AUTO 6.54 K/mm3 (1.96-9.15); NEUTROPHILS PERCENT AUTO 67 % (41-73); Platelet Count 294 K/mm3 (150-400); RDW Coefficient Variation 14.4 % (11.7-14.2); RDW Standard Deviation 47.6 fL (35.1-46.3); Red Blood Cell Count 3.39 M/mm3 (4.30-5.90); White Blood Cell Count 9.77 K/mm3 (4.00-11.30)
[2019-04-20 05:49] LABS: Anion Gap 10 mmol/L (6-16); Blood Urea Nitrogen 12 mg/dL (8-24); Bun/Creatinine Ratio 17.7 (12.0-20.0); CO2, Blood 24 mmol/L (21-32); Calcium, Blood 9.3 mg/dL (8.5-10.1); Chloride, Blood 107 mmol/L (98-108); Creatinine, Blood 0.68 mg/dL (0.60-1.20); Glomerular Filtration Rate >60 (60-); Glucose, Blood 114 mg/dL (70-99); Potassium, Blood 3.3 mmol/L (3.5-5.5); Sodium, Blood 141 mmol/L (136-145)
--- NOTE | 2019-04-20 18:27 | NUR ---
PATIENT IS ALERT AND ORIENTED. HE [place]END[place] IN [place] [facility] [place]. HE WOULD LIKE A WHEELCHAIR SO HE CAN WHEEL AROUND BUT THE RN WAS UNABLE TO LOCATE ONE. HE IS CONTINENT/INCONTINENT. HE HAD ONE LOOSE BOWEL MOVEMENT TODAY. WAITING ON PLACEMENT
--- NOTE | 2019-04-21 07:30 | NUR ---
04/21/19 0615 AWAKE AND SITTING ON SIDE OF BED FOR "A CHANGE". AM MEDS GIVEN. NO COMPLAINTS THIS AM. VITALS STABLE. SLEPT ON AND OFF.
--- NOTE | 2019-04-22 07:42 | NUR ---
04/22/19 0600 PT AWAKE FOR AM MED. HOPING TO GO HOME TODAY. VITALS STABLE. UNEVENTFUL NIGHT.
--- NOTE | 2019-04-22 18:32 | NUR ---
SHIFT SUMMARY PT AXO TO SELF, PLACE, FOLLOWING DIRECTIONS THOUGH FORGETFUL. EAGER TO "GO HOME" THOUGH PATIENT IS NOT AWARE THAT EX- STATED SHE CANNOT CARE FOR HIM ANY LONGER. VSS. NO ACUTE CHANGES THIS SHIFT. NO SPUTUM SAMPLE THIS SHIFT. PT UP TO WHEELCHAIR AND WHEELED HIMSELF DOWN THE HALLWAY THIS SHIFT. BED IN LOW POSITION, CALL LIGHT WITHIN REACH.
--- NOTE | 2019-04-23 06:44 | NUR ---
04/23/19 0630 AWAKENED FOR AM MEDS. VITALS STABLE. CHEERFUL AND HOPES TO GO HOME TODAY. UNEVENTFUL NIGHT.
--- NOTE | 2019-04-24 05:31 | NUR ---
COMMUNITY EDUCATOR SUMMARY slept poorly overnight. patient requested sleeping med around 0200, stated he usually takes Trazadone at home. Able to get to bedside commode independently from bed. (wheelchair bound at baseline) towards bedtime, he would ask for help as he was feeling weaker than he had. VSS, skin intact.
--- NOTE | 2019-04-24 18:44 | NUR ---
SHIFT SUMMARY MT PATIENT. ABLE TO TRANSFER WITH MINIMAL ASSISTANCE FROM BED TO BSC. DENIES ANY PAIN OR DISTRESS. EATING AND DRINKING WELL. AWAITING PLACEMENT HIS XWIFE IS NO LONGER ABLE TO TAKE CARE OF HIM.
--- NOTE | 2019-04-25 05:05 | NUR ---
LOOP CUTTER SUMMARY received requested 100mg trazadone at HS for sleep. patient still slept fitfully most of night. At hs, c/o generalized pain that he states he has had on and off for four years. tylenol and warm blankets given for comfort. patient still unable to produce sputum for respiratory culture. lung sounds dim dependent bases, clear and dim in upper lobes.
[2019-04-25] MEDS ORDERED: ALBU2.5V5 INH (11:45)
--- NOTE | 2019-04-25 12:10 | NUR ---
FAMILY UPDATED-LATE ENTRY FOR 1000. PT FAMILY UPDATED ON PLAN OF CARE & DC PLAN.
--- NOTE | 2019-04-25 12:45 | NUR ---
no advance directive or polst on file at [facility]
--- NOTE | 2019-04-25 17:14 | NUR ---
SHIFT SUMMARY NO CHANGES IN ASSESSMENT AT THIS TIME. VSS. PT DC DELAYED DUE TO PT REFUSING TO GO TO [facility]. PT STATES SHE IS NOT ABLE TO CARE FOR PT ANYMORE. PT TOLD DC PLANNING THAT SHE WOULD BE IN SOMETIME THIS AFTERNOON TO TALK TO PT ABOUT GOING TO [facility]. PT HAS YET TO ARRIVE. PT ASKING FOR TAXI NUMBER. PT INFORMED THAT HIS DC IS NOT COMPLETELY READY & HE NEEDS TO STAY ANOTHER NIGHT. PT BECAME ANGRY. PT CURRENTLY SLEEPING IN BED. WILL CONTINUE TO MONITOR FOR CHANGES IN PT CONDITION.
--- NOTE | 2019-04-26 04:51 | NUR ---
ACTIVATED SLUDGE ATTENDANT SUMMARY PT A/O X2 TO SELF AND TIME. PT WOULD ALSO TAKE AWHILE TO RESPOND. PT APPEARED SAD AND FEARFUL. HE STATED THAT HE WAS GOING TO [place] "SHIPPED TO THE BASES" AND HE DIDN'T WANT TO GO. I REASURRED HIM THAT HE IS AT THE HOSPITAL AND HE IS SAFE HERE TONIGHT. PT FOLLOWED COMMANDS AND SLEPT WELL TONIGHT. DAUGHTER CAME TO TALK TO NURSE EARMAKEDA DURING SHIFT CHANGE ABOUT PLACEMENT SITUATION AND SAID SHE WOULD TRY TO [facility] PT IN THE MORNING TO BE PLACED IN [facility]. VSS, NO CUTE CHANGES. WILL CONTINUE TO MONITOR.
--- NOTE | 2019-04-26 16:46 | NUR ---
DISCHARGE NOTE. PT DISCHARGED VIA W/C WITH [facility] TO [facility] AND IN NO ACUTE DISTRESS.
--- NOTE | 2019-04-26 17:34 | NUR ---
REPORT GIVEN TO [facility]
== END 2019-04-26 16:40 | DRG 871 ==
LOC: ER 21:01 → PCU 23:18 → MEDS 04-17 12:57 → PCU 04-17 12:57 → MEDS 04-17 12:57 → ENPENDDIS 04-25 09:30 → MEDS 04-26 16:40
PROVIDERS: Internal Medicine; Physician Assistant; ADMIT Internal Medicine
DX: A41.9 Sepsis, unspecified organism (principal); J96.21 Acute and chronic respiratory failure with hypoxia; J96.22 Acute and chronic respiratory failure with hypercapnia; J18.9 Pneumonia, unspecified organism; E43 Unspecified severe protein-calorie malnutrition; G92 Toxic encephalopathy; N17.9 Acute kidney failure, unspecified; F10.27 Alcohol dependence with alcohol-induced persisting dementia; E87.2 Acidosis; R65.20 Severe sepsis without septic shock; E87.6 Hypokalemia; E11.9 Type 2 diabetes mellitus without complications; D63.8 Anemia in other chronic diseases classified elsewhere; K21.9 Gastro-esophageal reflux disease without esophagitis; N40.0 Benign prostatic hyperplasia without lower urinary tract symptoms; F44.4 Conversion disorder with motor symptom or deficit; Z66 Do not resuscitate; E86.0 Dehydration; F43.10 Post-traumatic stress disorder, unspecified; G20 Parkinson's disease; F17.200 Nicotine dependence, unspecified, uncomplicated; R54 Age-related physical debility; Z68.27 Body mass index [BMI] 27.0-27.9, adult; Z86.73 Personal history of transient ischemic attack (TIA), and cerebral infarction without residual deficits; Z79.84 Long term (current) use of oral hypoglycemic drugs; Z79.82 Long term (current) use of aspirin; Z79.899 Other long term (current) drug therapy
CPT/HCPCS: 0097U; 0099U; 36415; 36600; 51701; 51798; 71045; 80048; 80053; 81001; 82803; 83605; 83880; 84145; 84484; 85025; 85027; 87040; 87086; 87324; 87804; 92610; 93005; 93010; 94640; 94667; 94760; 96361; 96374; 97110; 97161; 97165; 97530; 97535; 99285-25; A9270; A9270-GY; C9113; J0456; J0696; J1630; J1650; J1956; J2405; J3010; J7030; J7040; J7050; J7120

== ENCOUNTER → 2019-07-24 | Outpatient (CLI) | payer OTHER ==
[~2019-07-24] MED LIST changes: +ALBU2.5V5 INH
== END | disposition home or self-care (01) ==
LOC: LAB RH 07:58 → EDSTATUS 13:46 → LAB RH 13:47
DX: E11.9 Type 2 diabetes mellitus without complications (principal)
CPT/HCPCS: 36415; 83036

== ENCOUNTER 2020-03-05 17:33 | Observation (INO) | payer OTHER ==
[~2020-03-05] VITALS: Ht 193 cm; Wt 84.5 kg
[2020-03-05 19:13] LABS: BASOPHILS ABSOLUTE AUTO 0.09 K/mm3 (0.00-0.23); BASOPHILS PERCENT AUTO 1 % (0-2); EOSINOPHILS PERCENT AUTO 4 % (0-6); Hematocrit 30.3 % (37.0-53.0); Hemoglobin 9.6 g/dL (13.5-17.5); IMMATURE GRAN ABSOLUTE AUTO 0.04 K/mm3 (0.00-0.10); IMMATURE GRAN PERCENT AUTO 0 % (0-1); LYMPHOCYTES ABSOLUTE AUTO 2.42 K/mm3 (0.84-5.20); LYMPHOCYTES PERCENT AUTO 26 % (21-46); MONOCYTES ABSOLUTE AUTO 0.63 K/mm3 (0.16-1.47); MONOCYTES PERCENT AUTO 7 % (4-13); Mean Corpuscular HGB 28.4 pg (26.0-34.0); Mean Corpuscular HGB Conc 31.7 g/dL (31.5-36.5); Mean Corpuscular Volume 90 fL (80-100); Mean Platelet Volume 10.2 fL (9.1-12.4); NEUTROPHILS ABSOLUTE AUTO 5.82 K/mm3 (1.96-9.15); NEUTROPHILS PERCENT AUTO 62 % (41-73); Platelet Count 281 K/mm3 (150-400); RDW Coefficient Variation 14.6 % (11.7-14.2); RDW Standard Deviation 46.9 fL (35.1-46.3); Red Blood Cell Count 3.38 M/mm3 (4.30-5.90)
[2020-03-05 19:58] LABS: Albumin, Blood 3.1 g/dL (3.4-5.0); Albumin/Globulin Ratio 0.6 (0.8-1.8); Alk Phos 108 U/L (50-136); Anion Gap 8 mmol/L (6-16); Aspartate Aminotrans (AST/SGOT 11 U/L (12-37); Bilirubin, Total 0.9 mg/dL (0.1-1.0); Blood Urea Nitrogen 21 mg/dL (8-24); Bun/Creatinine Ratio 23.3 (12.0-20.0); CO2, Blood 24 mmol/L (21-32); Calcium, Blood 8.9 mg/dL (8.5-10.1); Chloride, Blood 105 mmol/L (98-108); Glomerular Filtration Rate >60 (60-); Glucose, Blood 199 mg/dL (70-99); Potassium, Blood 4.4 mmol/L (3.5-5.5); Sodium, Blood 137 mmol/L (136-145); Total Protein, Blood 8.1 g/dL (6.4-8.2)
[2020-03-05 20:40] LABS: Alanine Aminotransfer (ALT/SGP 19 U/L (12-78)
[2020-03-05] MEDS ORDERED: HYDMOR4 PO (23:20)
[2020-03-05] MEDS ORDERED: MORP30ER PO (23:21)
[2020-03-05] MEDS ORDERED: PREG100 PO (23:22)
[2020-03-05] MEDS ORDERED: DULCOLAX400 MG/5 M PO (23:24)
[2020-03-05] MEDS ORDERED: CITA20 PO (23:27)
[2020-03-05] MEDS ORDERED: LACT10SY PO (23:29)
[2020-03-05] MEDS ORDERED: TUMS500 MG PO (23:30)
[2020-03-05] MEDS ORDERED: MIRALAX17 GM PO (23:32)
[2020-03-05] MEDS ORDERED: OMEP20ER PO (23:33)
--- NOTE | 2020-03-06 05:16 | NUR ---
SHIFT SUMMARY PT WAS A NEW ADMIT DURING THE NIGHT, ARRIVING ON THE FLOOR AT 2245. HE IS A&O X 2, FORGETFUL, WHEELCHAIR BOUND AT BASELINE. PT WAS ADMITTED FOR LLE HEEL WOUND. PT DID REPORT PAIN IN HIS HEEL, BUT REFUSED PO TYLENOL D/T "IT WOULDN'T HELP". NO C/O NAUSEA OR SOB. VITAL SIGNS STABLE. NO OTHER ACUTE CHANGES IN PT CONDITION NOTED SINCE ADMISSION. WILL CONTINUE TO MONITOR AND TREAT PER EMAR UNTIL HAND OFF TO DAY SHIFT RN.
--- NOTE | 2020-03-06 09:43 | NUR ---
HE REFUSED SS INSULIN FOR CBG 202. HE HAS NOT EATEN ANY BREAKFAST YET. HE IS WAITING UNTIL LATER. HE HAD A BM BEFORE BREAKFAST. HE GOT HIMSELF ONTO THE TOILET IN THE BATHROOM BUT COULD NOT GET HIMSELF OFF. HE HAS AGREED TO USE THE BSC IN THE FUTURE WITH ASSIST. IT WILL WORK MUCH BETTER FOR HIM THAN THE SMALL BATHROOM. HE HAS HIS VANCO INFUSING NOW AFTER AN 8 AM CEFEPIME. VSS.
--- NOTE | 2020-03-06 13:04 | NUR ---
AND WERE HERE TO SEE BILL AND HIS WOUND AT THE SAME TIME. BOTH ARE IN AGREEMENT THAT HIS WOUND IS CHRONIC AND NEEDS CARE BUT NOT IN A HOSPITAL SETTING. HIS HEEL IS DRY AND WHOLE CENTER OF WOUND HAS ESCHAR. NO FEVER. VSS. ANTIBIOTICS HAVE BEEN DC'D. CHRONIC DISEASE EPIDEMIOLOGIST IS COMMUNICATING WITH [facility] ABOUT HIM RETURNING THERE TODAY.
[2020-03-06] MEDS ORDERED: HUMULIN R100 UNIT/2 SC (18:26)
[2020-03-06] MEDS ORDERED: LANTUS SOL100 UNIT/1 SC (18:27)
--- NOTE | 2020-03-06 19:04 | NUR ---
HE IS SITTING IN HIS W/C IN HIS ROOM WAITING TO GO HOME TO [facility]. HIS RIDE IS DUE NOW. NO DRESSING ON THE LEFT FOOT. HE WILL NEED TO SEE A AUTOMATION CONSULTANT AN OUTPATIENT. I CALLED REPORT TO THE [facility] RN ALREADY. PATIENT IS AFEBRILE AND COVID NEGATIVE. HE ATE ONLY [facility] TODAY. NO ACUTE PROBLEM. HE DOES HAVE THE SNIFFLES THOUGH. 2 RX'S IN HIS PACKET.
== END 2020-03-06 19:20 ==
LOC: ER 17:33 → MEDS 17:34 → ER 17:34 → MEDS 17:35 → ENPENDDIS 03-06 16:04 → MEDS 03-06 19:20
PROVIDERS: Emergency Medicine; ADMIT Family Medicine
DX: M86.8X7 Other osteomyelitis, ankle and foot (principal); Z20.828 Contact with and (suspected) exposure to other viral communicable diseases; E11.621 Type 2 diabetes mellitus with foot ulcer; L97.526 Non-pressure chronic ulcer of other part of left foot with bone involvement without evidence of necrosis; F03.90 Unspecified dementia, unspecified severity, without behavioral disturbance, psychotic disturbance, mood disturbance, and anxiety; F31.9 Bipolar disorder, unspecified; Z86.73 Personal history of transient ischemic attack (TIA), and cerebral infarction without residual deficits; F43.10 Post-traumatic stress disorder, unspecified; B96.89 Other specified bacterial agents as the cause of diseases classified elsewhere; I10 Essential (primary) hypertension; D63.8 Anemia in other chronic diseases classified elsewhere; J44.9 Chronic obstructive pulmonary disease, unspecified; N40.0 Benign prostatic hyperplasia without lower urinary tract symptoms; Z98.890 Other specified postprocedural states; F15.11 Other stimulant abuse, in remission; Z66 Do not resuscitate; F17.210 Nicotine dependence, cigarettes, uncomplicated; Z79.899 Other long term (current) drug therapy; Z79.82 Long term (current) use of aspirin; Z79.4 Long term (current) use of insulin
CPT/HCPCS: 73650; 80053; 82947; 85025; 85651; 86140; 96365; 96375; 99284-25; G0378; J0692; J1815; J2543; J3370; J7050; U0003